=== PATIENT | female | born 1990 | race Asian ===

== ENCOUNTER 2017-10-17 04:52 | Inpatient (IN) | payer MEDICAID ==
[~2017-10-17] VITALS: Ht 167.6 cm; Wt 76.4 kg
[2017-10-17] VITALS (23 sets, daily range): BP systolic 96–147; BP diastolic 55–79; PULSE 73–117; TEMP 97.8–98.4
[2017-10-17 05:39] LABS: BASO % 0.5 % (0.0-2.0); EOS % 0.2 % (0-4.0); GRAN % 67.7 % (42.2-75.2); HEMOGLOBIN 12.6 g/dl (12.5-16.0); LYMPH # 2.1 (1.2-3.4); LYMPH % 24.2 % (20.0-51.0); MEAN CELL VOLUME 92 fl (80.0-100.0); MEAN CORPUSCULAR HEMOGLOBIN 32 pg (27.0-31.0); MEAN CORPUSCULAR HGB CONC 35 g/dl (33.0-37.0); MEAN PLATELET VOLUME 10.6 fl (7.4-10.4); MONO # 0.6 (0.1-0.6); MONO % 6.7 % (1.7-9.3); PLATELET COUNT 234 K/mm3 (130-400); RED BLOOD COUNT 3.94 M/mm3 (4.10-5.30); REDCELL DISTRIBUTION WIDTH-CV 13.3 % (11.5-14.5)
[2017-10-17 05:40] LABS: HEMATOCRIT 36.3 % (37.0-47.0)
[2017-10-17] MEDS ORDERED: PRENATAL MVI (05:44)
[2017-10-17] MEDS ORDERED: EZFE 200200 MG PO (05:44)
[2017-10-18 08:15] VITALS: BP 111/63; PULSE 84; TEMP 98.5
[2017-10-18] MEDS ORDERED: PERCOCET 325 MG1 TA2 PO (10:48)
[2017-10-18] MEDS ORDERED: IBU600 MG PO (10:48)
[2017-10-18 19:49] VITALS: BP 123/64; PULSE 74; TEMP 98.4
[2017-10-19 10:00] VITALS: BP 90/62; PULSE 88; TEMP 98.6
== END 2017-10-19 11:55 | disposition home or self-care (01) | DRG 775 ==
LOC: LDRO 04:52 → OB 05:20 → LDR 05:20 → OB 12:00
PROVIDERS: Obstetrics & Gynecology
PROC: 10E0XZZ Delivery of Products of Conception, External Approach (ICD-10-PCS; principal; 2017-10-17)
PROC: 0KQM0ZZ Repair Perineum Muscle, Open Approach (ICD-10-PCS; 2017-10-17)
PROC: 0UQMXZZ Repair Vulva, External Approach (ICD-10-PCS; 2017-10-17)
DX: O70.1 Second degree perineal laceration during delivery (principal); Z37.0 Single live birth; Z3A.40 40 weeks gestation of pregnancy; O99.02 Anemia complicating childbirth; O77.0 Labor and delivery complicated by meconium in amniotic fluid
CPT/HCPCS: J2590; J2795; J7120